=== PATIENT | male | born 1980 | race Hispanic/Latino ===

== ENCOUNTER 2018-11-07 01:10 | Inpatient (IN) | payer BC ==
--- NOTE | 2018-11-07 03:15 | ED PDOC ---
Lower Extremity Pain/Injury Time Seen by Provider: 11/07/18 01:23 Chief Complaint (Nursing): Lower Extremity Problem/Injury Chief Complaint (Provider): Distal Tibia Fx History Per: Patient History/Exam Limitations: no limitations Onset/Duration Of Symptoms: Mins (approximately 30 minutes prior to presentation) Current Symptoms Are (Timing): Still Present Severity: Moderate (Pt presents to the ED) Past Medical History Reviewed: Historical Data, Nursing Documentation, Vital Signs Vital Signs: Last Vital Signs Temp 97.7 F 11/07/18 01:18 Pulse 107 H 11/07/18 01:18 Resp 16 11/07/18 01:18 BP 138/94 H 11/07/18 01:18 Pulse Ox 96 11/07/18 01:18 - Family History Family History: States: Unknown Family Hx - Allergies Allergies/Adverse Reactions: Allergies Allergy/AdvReac Type Severity Reaction Status Date / Time No Known Allergies Allergy Verified 11/07/18 01:19 Review of Systems ROS Statement: Except As Marked, All Systems Reviewed And Found Negative Musculoskeletal: Positive for: Leg Pain Physical Exam - Reviewed Nursing Documentation Reviewed: Yes Vital Signs Reviewed: Yes - Physical Exam Appears: Positive for: Well, Non-toxic, No Acute Distress, Uncomfortable Head Exam: Positive for: ATRAUMATIC, NORMAL INSPECTION Skin: Positive for: Normal Color, Warm, Dry. Negative for: Diaphoresis, Pallor, Rash Eye Exam: Positive for: Normal appearance. Negative for: Nystagmus, Periorbital swelling, Periorbital tenderness Neck: Positive for: Normal. Negative for: Decreased ROM Cardiovascular/Chest: Positive for: Regular Rate, Rhythm Respiratory: Positive for: Normal Breath Sounds Pulses-Carotid (L): 2+ Pulses-Carotid (R): 2+ Pulses-Post. Tibialis (L): 2+ Pulses-Post. Tibialis (R): 2+ Pulses-Radial (L): 2+ Pulses-Radial (R): 2+ Extremity: Positive for: Tenderness (to the distal tibia), Capillary Refill (less than two seconds at all distal extremities), Deformity (to the left lower leg), Swelling. Negative for: Calf Tenderness Neurologic/Psych: Negative for: Motor/Sensory Deficits (no sensory or motor d eficits ) - ECG O2 Sat by Pulse Oximetry: 96 Medical Decision Making Medical Decision Making: I: Distal Tibia Fx P: Pain control Xray left ankle Pt immediately sent to xray based on clinical presentation Ankle Xray wet read as comminuted fx with displacement of the distal tibia and fibula. XR indicate comminuted distal tib fib fx with significant displacemetn 0245: Call to Podiatry: referred to Ortho 0300: Call to Ortho (Zurdo) who indicated admit to [facility] and immediately splint ankle Lower leg sugar tong splint placed; ice and elevation applied Pt refuses pain medication CT ordered 0: Call to Medical Service (Ryan Joshua) and admit to Dr Cornell service Pt will be placed NPO and pre-op labs ordered. Bridge orders entered to ensure smooth transition of care Disposition - Clinical Impression Clinical Impression: Fracture of distal end of tibia with fibula, Fracture of tibia and fibula - Patient ED Disposition Is Patient to be Admitted: Yes Discussed With : Jose Francisco Galvan III Doctor Will See Patient In The: Hospital Counseled Patient/Family Regarding: Studies Performed, Diagnosis - Disposition Disposition Time: 04:08 Condition: STABLE - Pt Status Changed To: Hospital Disposition Of: Inpatient - Admit Certification Admit to Inpatient:: After my assessment, the patient will require hospitalization for at least two midnights. This is because of the severity of symptoms shown, intensity of services needed, and/or the medical risk in this patient being treated as an outpatient.
[2018-11-07 04:51] LABS: BASO # 0.1 K/uL (0.0-0.2); BASO % 0.6 % (0.0-2.0); EOS % 0.4 % (0.0-4.0); HEMOGLOBIN 14.9 g/dL (12.0-18.0); LYMPH % 9.7 % (20.0-40.0); MEAN CELL VOLUME 90.1 fl (80.0-94.0); MEAN CORPUSCULAR HEMOGLOBIN 30.4 pg (27.0-31.0); MEAN CORPUSCULAR HGB CONC 33.7 g/dL (33.0-37.0); MEAN PLATELET VOLUME 9.5 fl (7.2-11.7); MONO # 0.3 K/uL (0.0-0.8); MONO % 3.1 % (0.0-10.0); NEUT # 9.3 K/uL (1.8-7.0); NEUT % 86.2 % (50.0-75.0); NRBC % 0.1 % (0.0-0.0); PLATELET COUNT 220 K/uL (130-400); RED CELL DISTRIBUTION WIDTH 14.4 % (11.5-14.5); WHITE BLOOD COUNT 10.8 K/uL (4.8-10.8)
[2018-11-07 04:55] LABS: ALB/GLOB RATIO 1.5 (1.0-2.1); ALBUMIN 4.8 g/dL (3.5-5.0); BLOOD UREA NITROGEN 9 mg/dl (9-20); CALCIUM 9.4 mg/dL (8.4-10.2); GFR NON-AFRICAN AMERICAN > 60
[2018-11-07 05:07] LABS: ALT/SGPT 47 U/L (21-72); AST/SGOT 45 U/L (17-59)
[2018-11-07 06:45] LABS: BASOPHIL 2 % (0-2); LYMPHOCYTE 13 % (20-50); MONOCYTE 3 % (0-10); NEUTROPHIL 82 % (42-75); PLATELET ESTIMATE NORMAL (NORMAL); TOTAL CELLS COUNTED 100
[2018-11-07] MEDS ORDERED: Morphine 4 MG/ML VIAL IVP PRN (08:04)
[2018-11-07] MEDS: Dextrose 5%/Lactated Ringer's 1,000 ML IV SCH (08:12)
[2018-11-07 10:11] LABS: PROTHROMBIN TIME 11.7 Seconds (9.8-13.1)
[2018-11-07 10:13] LABS: PARTIAL THROMBOPLASTIN TIME 34.1 Seconds (25.6-37.1)
[2018-11-07 10:51] LABS: URINE BILIRUBIN NEGATIVE (NEGATIVE); URINE BLOOD NEGATIVE (NEGATIVE); URINE CLARITY CLEAR (Clear); URINE COLOR STRAW (YELLOW); URINE GLUCOSE (UA) NEG (NEGATIVE); URINE LEUKOCYTE ESTERASE NEG Leu/uL (Negative); URINE PROTEIN NEGATIVE (NEGATIVE); URINE UROBILINOGEN 0.2-1.0 mg/dL (0.2-1.0)
--- NOTE | 2018-11-07 11:05 | RAD ---
Date of service: 11/07/2018 PROCEDURE: Left Tibia and Fibula Radiographs Left Ankle Radiographs. HISTORY: r/o fx COMPARISON: None available. FINDINGS: BONES: Comminuted, displaced fractures of the distal tibia and distal fibula with posterior dislocation of the major distal fracture segment. JOINTS: Normal. No osteoarthritis. Ankle mortise maintained. Talar dome intact SOFT TISSUES: Normal. OTHER FINDINGS: None. IMPRESSION: Comminuted, displaced distal tibia and fibula fractures.
--- NOTE | 2018-11-07 11:17 | CP.PCM.CON ---
History of Present Illness - History of Present Illness History of Present Illness: ID: 38 yo male presents with pain and restricted ROM L distal tibia/fibula CC: Pain, swelling and restricted ROM L ankle/ distal tibia/fibula HPI: 38 yo male presents with pain and restricted ROM L foot ankle complex. Pt sustained torsional injury to L distal tibia/fibula after fall on ice early this AM. Pt was exiting a bar on [address]- sustained a slip and fall on, sjustaing a torsional injury to L foot/ankle complex. PT seen in ER at [facility], stabilized and admitted/ pt seen at bedside this AM, presnting with sw elling and discomfort L foot/anjkle/distal tibia. Lower extremity poorly positioned , noted pain in area of L fibular head, with mild neurapraxia L peroneal nerve. Pt presents for surgery in AM Past Patient History - Past Medical History & Family History Past Medical History?: No - Past Social History Smoking Status: Never Smoked - CARDIAC Hx Cardiac Disorders: No - PULMONARY Hx Respiratory Disorders: No - NEUROLOGICAL Hx Neurological Disorder: No - HEENT Hx HEENT Problems: No - RENAL Hx Chronic Kidney Disease: No - ENDOCRINE/METABOLIC Hx Endocrine Disorders: No - HEMATOLOGICAL/ONCOLOGICAL Hx Blood Disorders: No - INTEGUMENTARY Hx Dermatological Problems: No - MUSCULOSKELETAL/RHEUMATOLOGICAL Hx Musculoskeletal Disorders: No Hx Falls: Yes (slipped on ice approx 20 mins prior to admission) - GASTROINTESTINAL Hx Gastrointestinal Disorders: No - GENITOURINARY/GYNECOLOGICAL Hx Genitourinary Disorders: No - PSYCHIATRIC Hx Psychophysiologic Disorder: No Hx Substance Use: No - SURGICAL HISTORY Hx Surgeries: No - ANESTHESIA Hx Anesthesia: No Meds Allergies/Adverse Reactions: Allergies Allergy/AdvReac Type Severity Reaction Status Date / Time No Known Allergies Allergy Verified 11/07/18 01:19 - Medications Medications: Current Medications Dextrose/Lactated Ringer's (Dextrose 5%/Lactated Ringer's) 1,000 mls @ 100 mls/hr IV .Q10H JENNIFER Stop: 11/08/18 08:02 Last Admin: 11/07/18 08:12 Dose: 100 mls/hr Ketorolac Tromethamine (Toradol) 30 mg IVP Q6 PRN PRN Reason: Pain, Mild (1-3) Morphine Sulfate (Morphine) 4 mg IVP Q4 PRN PRN Reason: Pain, severe (8-10) Morphine Sulfate (Morphine) 2 mg IVP Q4 PRN PRN Reason: Pain, moderate (4-7) Physical Exam - Additional Findings Additional findings: Physical Exam sytemic exam as per Dr Macias no gross abnormalities on physical exam Musculoskekltal exam: stance/gait- defrred pt at bedrest with L lower extremity poiorly positioned ( external rotation L lower extremity causing compression to proximal fibula with resultant mild peroneal n compression) pt able to dorsiflex hallux, but ertainly 1 muscle grade weaker than contralateral extremity postyerior splint intact pt with decreased senstaion 1st web space L foot Results - Vital Signs Recent Vital Signs: Last Vital Signs Temp 98.3 F 11/07/18 08:03 Pulse 108 H 11/07/18 08:03 Resp 20 11/07/18 08:03 BP 114/65 11/07/18 08:03 Pulse Ox 96 11/07/18 08:03 - Labs Result Diagrams: 11/07/18 04:22 11/07/18 04:22 Labs: Laboratory Results - last 24 hr 11/07/18 11/07/18 11/07/18 04:22 04:22 04:22 WBC 10.8 RBC 4.90 Hgb 14.9 Hct 44.2 MCV 90.1 MCH 30.4 MCHC 33.7 RDW 14.4 Plt Count 220 MPV 9.5 Neut % (Auto) 86.2 H Lymph % (Auto) 9.7 L [place] % (Auto) 3.1 Eos % (Auto) 0.4 Baso % (Auto) 0.6 Neut # (Auto) 9.3 H Lymph # (Auto) 1.0 [place] # (Auto) 0.3 Eos # (Auto) 0.0 Baso # (Auto) 0.1 Neutrophils % (Manual) 82 H Lymphocytes % (Manual) 13 L Monocytes % (Manual) 3 Basophils % (Manual) 2 Platelet Estimate Normal PT INR APTT Sodium 139 Potassium 4.5 Chloride 99 Carbon Dioxide 22 Anion Gap 23 H BUN 9 Creatinine 0.8 Est GFR ( Amer) > 60 Est GFR (Non-Af Amer) > 60 Random Glucose 110 Calcium 9.4 Total Bilirubin 0.7 AST 45 ALT 47 Alkaline Phosphatase 84 Total Protein 7.9 Albumin 4.8 Globulin 3.2 Albumin/Globulin Ratio 1.5 Urine Color Urine Clarity Urine pH Ur Specific [place] Urine Protein Urine Glucose (UA) Urine Ketones Urine Blood Urine Nitrate Urine Bilirubin Urine Urobilinogen Ur Leukocyte Esterase Urine RBC (Auto) Urine Microscopic WBC Blood Type O POSITIVE Blood Type Confirm Antibody Screen Negative BBK History Checked No verified bt 11/07/18 11/07/18 11/07/18 05:41 08:56 10:18 WBC RBC Hgb Hct MCV MCH MCHC RDW Plt Count MPV Neut % (Auto) Lymph % (Auto) [place] % (Auto) Eos % (Auto) Baso % (Auto) Neut # (Auto) Lymph # (Auto) [place] # (Auto) Eos # (Auto) Baso # (Auto) Neutrophils % (Manual) Lymphocytes % (Manual) Monocytes % (Manual) Basophils % (Manual) Platelet Estimate PT 11.7 INR 1.0 APTT 34.1 Sodium Potassium Chloride Carbon Dioxide Anion Gap BUN Creatinine Est GFR ( Amer) Est GFR (Non-Af Amer) Random Glucose Calcium Total Bilirubin AST ALT Alkaline Phosphatase Total Protein Albumin Globulin Albumin/Globulin Ratio Urine Color Straw Urine Clarity Clear Urine pH 7.0 Ur Specific [place] 1.005 Urine Protein Negative Urine Glucose (UA) Neg Urine Ketones Negative Urine Blood Negative Urine Nitrate Negative Urine Bilirubin Negative Urine Urobilinogen 0.2-1.0 Ur Leukocyte Esterase Neg Urine RBC (Auto) < 1 Urine Microscopic WBC < 1 Blood Type Blood Type Confirm O POSITIVE Antibody Screen BBK History Checked - Impressions Impression: Xray- Displaced, angulated, somewhat comminuted L distal 1/4 tibia fracture displced/angulated comminuted fibula frcature CT- displaced/ comminuted L distal 1/4 distal tibia frcature/ distal fibula fracture Assessment & Plan - Assessment and Plan (Free Text) Assessment: A- displaced/comminuted angulated distal 1/4 - distal 1/3 tibia fracture Angulated displaced L fibula fracture P- to OR for ORIF in AM. Lower extremity correctly positioned/ ice applied/ spline rewrapped pros/conms risks and benfits of surgical approach discussed informed consent obtained possibility of mechanical failure/infection/ thrombosis disease/nerve injury/secondary or tertiary surgery discussed No promises or guarantees- possibility of secondary or tertiary suregery discussed- NO PROMISE OR GUARANTEES- INFORMED CONSENT OBTAINED IN PRESCENCE OF february, AND Abelardo Cuello
--- NOTE | 2018-11-07 11:36 | CP.PCM.HP ---
History of Present Illness - History of Present Illness History of Present Illness: HPI: 38 y/o Male pt was brought to the ED S/P fall on ice in the street. Tibia/Fibula X-ray revealed a comminuted, displaced distal tibia and fibula fractures. At preesnt, the pt's LLE is splinted, with ice applied. Pt is for surgery tomorrow morning. CXR, labs, EKG, UA reviewed. Plan of care discussed with staff. PMH: unremarkable. PSH: unremarkable. Social History: social drinker, unremarkable. Allergies: NKDA. Present on Admission - Present on Admission Any Indicators Present on Admission: No Review of Systems - Review of Systems All systems: reviewed and no additional remarkable complaints except - Musculoskeletal Musculoskeletal: Joint Swelling, Limited Range of Motion, Muscle Weakness Additional comments: pain to LLE, near ankle. Past Patient History - Past Medical History & Family History Past Medical History?: No - Past Social History Smoking Status: Never Smoked - CARDIAC Hx Cardiac Disorders: No - PULMONARY Hx Respiratory Disorders: No - NEUROLOGICAL Hx Neurological Disorder: No - HEENT Hx HEENT Problems: No - RENAL Hx Chronic Kidney Disease: No - ENDOCRINE/METABOLIC Hx Endocrine Disorders: No - HEMATOLOGICAL/ONCOLOGICAL Hx Blood Disorders: No - INTEGUMENTARY Hx Dermatological Problems: No - MUSCULOSKELETAL/RHEUMATOLOGICAL Hx Musculoskeletal Disorders: No Hx Falls: Yes (slipped on ice approx 20 mins prior to admission) - GASTROINTESTINAL Hx Gastrointestinal Disorders: No - GENITOURINARY/GYNECOLOGICAL Hx Genitourinary Disorders: No - PSYCHIATRIC Hx Psychophysiologic Disorder: No Hx Substance Use: No - SURGICAL HISTORY Hx Surgeries: No - ANESTHESIA Hx Anesthesia: No Meds Allergies/Adverse Reactions: Allergies Allergy/AdvReac Type Severity Reaction Status Date / Time No Known Allergies Allergy Verified 11/07/18 01:19 Physical Exam - Constitutional Appears: No Acute Distress - Head Exam Head Exam: ATRAUMATIC, NORMAL INSPECTION, NORMOCEPHALIC - Eye Exam Eye Exam: EOMI, Normal appearance, PERRL Pupil Exam: NORMAL ACCOMODATION, PERRL - ENT Exam ENT Exam: Mucous Membranes Moist - Neck Exam Neck exam: Positive for: Full Rom, Normal Inspection - Respiratory Exam Respiratory Exam: Clear to Auscultation Bilateral, NORMAL BREATHING PATTERN - Cardiovascular Exam Cardiovascular Exam: REGULAR RHYTHM, +S1, +S2 - GI/Abdominal Exam GI & Abdominal Exam: Normal Bowel Sounds, Soft - Extremities Exam Additional comments: SALVATORE has a splint applied, with mild swelling noted to lower extremity. Toes are warm and movable. - Back Exam Back exam: NORMAL INSPECTION - Neurological Exam Neurological exam: Alert, CN II-XII Intact, Oriented x3 - Psychiatric Exam Psychiatric exam: Normal Affect, Normal Mood - Skin Skin Exam: Dry, Normal Color, Warm Results - Vital Signs Recent Vital Signs: Last Vital Signs Temp 98.3 F 11/07/18 08:03 Pulse 108 H 11/07/18 08:03 Resp 20 11/07/18 08:03 BP 114/65 11/07/18 08:03 Pulse Ox 96 11/07/18 08:03 - Labs Result Diagrams: 11/07/18 04:22 11/07/18 04:22 Labs: Laboratory Results - last 24 hr 11/07/18 11/07/18 11/07/18 04:22 04:22 04:22 WBC 10.8 RBC 4.90 Hgb 14.9 Hct 44.2 MCV 90.1 MCH 30.4 MCHC 33.7 RDW 14.4 Plt Count 220 MPV 9.5 Neut % (Auto) 86.2 H Lymph % (Auto) 9.7 L [place] % (Auto) 3.1 Eos % (Auto) 0.4 Baso % (Auto) 0.6 Neut # (Auto) 9.3 H Lymph # (Auto) 1.0 [place] # (Auto) 0.3 Eos # (Auto) 0.0 Baso # (Auto) 0.1 Neutrophils % (Manual) 82 H Lymphocytes % (Manual) 13 L Monocytes % (Manual) 3 Basophils % (Manual) 2 Platelet Estimate Normal PT INR APTT Sodium 139 Potassium 4.5 Chloride 99 Carbon Dioxide 22 Anion Gap 23 H BUN 9 Creatinine 0.8 Est GFR ( Amer) > 60 Est GFR (Non-Af Amer) > 60 Random Glucose 110 Calcium 9.4 Total Bilirubin 0.7 AST 45 ALT 47 Alkaline Phosphatase 84 Total Protein 7.9 Albumin 4.8 Globulin 3.2 Albumin/Globulin Ratio 1.5 Urine Color Urine Clarity Urine pH Ur Specific [place] Urine Protein Urine Glucose (UA) Urine Ketones Urine Blood Urine Nitrate Urine Bilirubin Urine Urobilinogen Ur Leukocyte Esterase Urine RBC (Auto) Urine Microscopic WBC Blood Type O POSITIVE Blood Type Confirm Antibody Screen Negative BBK History Checked No verified bt 11/07/18 11/07/18 11/07/18 05:41 08:56 10:18 WBC RBC Hgb Hct MCV MCH MCHC RDW Plt Count MPV Neut % (Auto) Lymph % (Auto) [place] % (Auto) Eos % (Auto) Baso % (Auto) Neut # (Auto) Lymph # (Auto) [place] # (Auto) Eos # (Auto) Baso # (Auto) Neutrophils % (Manual) Lymphocytes % (Manual) Monocytes % (Manual) Basophils % (Manual) Platelet Estimate PT 11.7 INR 1.0 APTT 34.1 Sodium Potassium Chloride Carbon Dioxide Anion Gap BUN Creatinine Est GFR ( Amer) Est GFR (Non-Af Amer) Random Glucose Calcium Total Bilirubin AST ALT Alkaline Phosphatase Total Protein Albumin Globulin Albumin/Globulin Ratio Urine Color Straw Urine Clarity Clear Urine pH 7.0 Ur Specific [place] 1.005 Urine Protein Negative Urine Glucose (UA) Neg Urine Ketones Negative Urine Blood Negative Urine Nitrate Negative Urine Bilirubin Negative Urine Urobilinogen 0.2-1.0 Ur Leukocyte Esterase Neg Urine RBC (Auto) < 1 Urine Microscopic WBC < 1 Blood Type Blood Type Confirm O POSITIVE Antibody Screen BBK History Checked Assessment & Plan (1) Fracture of tibia and fibula Assessment and Plan: Assessment/Impression/Major Problems now: 1.) Fracture of Tibia and Fibula: -Pt for ORIF surgery with orthopedics (Dr. Galvan) tomorrow morning. -To be placed NPO after midnight. -LLE posterior splint maintained, with ice packs applied at this time. -Toradol for mild pain, Morphine for stronger pain. -Coags, EKG, and UA reviewed: unremarkable. -CXR (my interpretation): clear, no active disease. -The pt is medically cleared for surgery tomorrow morning. Status: Acute
--- NOTE | 2018-11-07 11:45 | RAD ---
Date of service: 11/07/2018 PROCEDURE: CHEST RADIOGRAPH, 1 VIEW HISTORY: pre-op clearance COMPARISON: None available. FINDINGS: LUNGS: Clear. PLEURA: No pneumothorax or pleural fluid seen. CARDIOVASCULAR: No aortic atherosclerotic calcification present. Normal. OSSEOUS STRUCTURES: No significant abnormalities. VISUALIZED UPPER ABDOMEN: Normal. OTHER FINDINGS: None. IMPRESSION: No active disease.
--- NOTE | 2018-11-07 11:59 | CT ---
Date of service: 11/07/2018 PROCEDURE: CT of the right lower extremity. HISTORY: pre op: knee to toe COMPARISON: Right tibia/fibula and ankle radiographs performed earlier the same day. TECHNIQUE: Contiguous axial images of the right tibia and fibula were obtained. Coronal and sagittal reformats were generated. Radiation dose: Total exam DLP = 751.43 mGy-cm. This CT exam was performed using one or more of the following dose reduction techniques: Automated exposure control, adjustment of the mA and/or kV according to patient size, and/or use of iterative reconstruction technique. FINDINGS: BONES: There are comminuted, displaced fractures of the distal tibia and fibula. Distal tibia fracture plane extends to the interosseous region and to the tibiotalar articulation. SOFT TISSUES: Unremarkable. IMPRESSION: Comminuted fractures of the distal tibia and fibula as described above.
[2018-11-07] MEDS: Morphine 4 MG/ML VIAL IVP PRN ×2 (13:20→19:55)
[2018-11-08] MEDS: Dextrose 5%/Lactated Ringer's 1,000 ML IV SCH ×2 (05:10→05:20)
[2018-11-08] MEDS ORDERED: Midazolam 2 MG/2 ML VIAL ONE (07:25)
[2018-11-08] MEDS ORDERED: Lidocaine 4% (Laryng-O-Jet) Kit MM ONE (07:25)
[2018-11-08] MEDS ORDERED: Rocuronium 10 mg/ml (5 ml) ONE (07:25)
[2018-11-08] MEDS ORDERED: Propofol 10 mg/ml Inj (20 ML) ONE (07:25)
[2018-11-08] MEDS ORDERED: Sevoflurane - Inhalation Anesthetic Liq (250 ml) ONE (07:27)
[2018-11-08] MEDS ORDERED: Lactated Ringer's 1,000 ML IV ONE ×2 (07:45→10:00)
[2018-11-08] MEDS ORDERED: Absorbable Gelatin Sponge Size 12-7 ONE (07:46)
[2018-11-08] MEDS ORDERED: Bacitracin Ointment 30 GM TUBE ONE (07:46)
[2018-11-08] MEDS ORDERED: Ropivacaine 0.5% 30ML IV ONE (07:47)
--- NOTE | 2018-11-08 07:59 | CARD ---
APPROVED REPORT Date of service: 11/07/2018 EKG Measurement Heart [id number] <Conclusion> Sinus tachycardia Otherwise normal ECG
--- NOTE | 2018-11-08 09:06 | CP.PCM.PN ---
Subjective - Date & Time of Evaluation Date of Evaluation: 11/08/18 Time of Evaluation: 08:10 - Subjective Subjective: S- pt still with decreased sensation 1st/2nd web space- pt with post fracture pain/ motor EHL weak; Objective - Vital Signs/Intake and Output Vital Signs (last 24 hours): Temp Pulse Resp BP Pulse Ox 98.7 F 98 H 20 141/96 H 95 11/08/18 04:57 11/08/18 04:57 11/08/18 04:57 11/08/18 04:57 11/08/18 04:57 - Medications Medications: Current Medications Ketorolac Tromethamine (Toradol) 30 mg IVP Q6 PRN PRN Reason: Pain, Mild (1-3) Last Admin: 11/07/18 12:33 Dose: 30 mg Morphine Sulfate (Morphine) 4 mg IVP Q4 PRN PRN Reason: Pain, severe (8-10) Morphine Sulfate (Morphine) 2 mg IVP Q4 PRN PRN Reason: Pain, moderate (4-7) Last Admin: 11/07/18 19:55 Dose: 2 mg - Labs Labs: 11/07/18 04:22 11/07/18 04:22 PT 11.7 Seconds (9.8-13.1) 11/07/18 08:56 INR 1.0 11/07/18 08:56 APTT 34.1 Seconds (25.6-37.1) 11/07/18 08:56 - Additional Findings Additional findings: Obj systemic exam unchamnged Musculoskekltal exam decreased sensation 1st/2nd web space weakness of EHL (4/5) posterior splint intacft Assessment and Plan - Assessment and Plan (Free Text) Assessment: A- displaced/comminuted/angulated distal tibia fracture/angulated distal fibuyla fracture P- to OR for ORIF/ bone grafting- possibility fo mechanical failure/infection/thromboembolic disease/ possibility of nerve injury stifnnes/mechanical failure /infection thriomboembolic disease NO PROMSES//GUARANTEES
[2018-11-08] MEDS ORDERED: Dexamethasone 4 mg/1 ml ONE (09:08)
[2018-11-08] MEDS ORDERED: Neostigmine 1:1000 (1 mg/ml) Inj ONE (11:31)
[2018-11-08] MEDS ORDERED: HYDROmorphone 0.5 mg/0.5 ml ISec IVP PRN (12:01)
[2018-11-08] MEDS ORDERED: Dexamethasone 4 mg/1 ml IVP PRN (12:01)
[2018-11-08] MEDS ORDERED: Oxycodone/Acetaminophen 5/325 mg Tab PO PRN (12:03)
--- NOTE | 2018-11-08 12:04 | PCM.ANESB7 ---
Adductor Canal Block - Adductor Canal Block Date of Procedure: 11/08/18 Anesthiologist: Rojelio Cordova Pre-Procedure Diagnosis: Left distal tibial and fibia fracture Post-Procedure Diagnosis: Same Procedure Performed: Adductor Canal Block Left - Procedure Adductor Canal Block: The procedure was explained to the patient that it is for the post-operative pain management. Consent was obtained after a thorough discussion with the patient regarding the benefits and possible complications of local anesthetic adductor canal block of the femoral nerve. Standard monitors, as defined by the ASA, were applied to the patient. Time-out was held with the circulating nurse to confirm the appropriate block. After applying supplemental oxygen and administering IV Sedation as needed, the patient was placed in supine position with and the operative leg was flexed slightly at the knee and externally rotated as needed, and was kept anatomically stable. The mid-thigh of the ___LEFT lower extremity was exposed. The ultrasound transducer was then applied transversely along the medial aspect, about midway down the thigh and the femoral artery and vein were identified in appropriate relation with the sartorius muscle. At this time, the femoral nerve was visualized lateral to the femoral artery within the canal. After thorough identification, this area area was prepped with Chloroprep solution three times and 1 % Lidocaine was injected subcutaneously for topical anesthesia. At this point, a #22 gauge Stimuplex 4-inch needle was inserted in-plane in a [id number] orientation, and advanced toward the femoral nerve. Advancement was performed carefully under direct ultrasound visualization. After negative aspiration, __5___cc of ___0.5__% ropivacaine was injected and this was followed with __25____ cc of __0.5 % ropivacaine. Under ultrasound guidance the local anesthetics were observed spreading around the femoral nerve. The needle was removed intact and sterile dressing was applied. The patient had stable vital signs, was conscious and in no apparent distress. The patient tolerated the femoral nerve block well with stable vital signs and was prepared for subsequent surgery
--- NOTE | 2018-11-08 12:05 | PCM.ANESB2 ---
Popliteal Nerve Block - Popliteal Nerve Block Date of Procedure: 11/08/18 Anesthesiologist: Rojelio Cordova Pre-Procedure Diagnosis: Left distal tibial and fibia fracture Post-Procedure Diagnosis: Same Procedure Performed: Popliteal Nerve Block Left - Procedure Popliteal Nerve Block: This procedure was explained to the patient that it is for post-operative pain management. Consent was obtained after a thorough discussion with the patient regarding the benefits and possible complications of local anesthetic block of the sciatic nerve at the popliteal level. The patient was brought to the operating room and standard monitors are applied. Time-out was held with the circulating nurse to confirm the correct surgery and the appropriate block. After applying oxygen by nasal cannula and administering IV Sedation, patient's operative leg was gently raised and supported and the groove in between the biceps femoris and vastus lateralis muscles was carefully palpated. The skin marilou roximately 8cm above the LEFT popliteal crease was then marked. The ultrasound transducer was then applied to the posterior thigh approximately 8cm above the popliteal crease in the transverse plane and the sciatic nerve before its division was visualized lateral to the popliteal artery and in between the bicep femoris and semimembranosus/semitendinosus muscles. After identification, the lateral portion of the thigh was prepped with Chloraprep solution three times and Lidocaine 1% was injected subcutaneously for topical anesthesia. At this point, a # 21 gauge Stimuplex insulated 4 inch needle was inserted into pre-marked area and advanced in a perpendicular direction. The needle was inserted above the ultrasound transducer in-plane towards the sciatic nerve in a [id number] direction. Needle advancement was performed carefully under direct ultrasound visualization. After repeated negative aspiration, ___5__cc of __0.5___ % ropivacaine was injected and this was flowed with ___25___ cc of __0.5____% ropivacaine. Under ultrasound guidance the local anesthetics were observed surrounding sciatic nerve . The needle was removed intact and sterile dressing was applied. The patient tolerated the popliteal nerve block well with stable vital signs and was subsequently prepared for the surgery.
[2018-11-08] MEDS ORDERED: Sodium Chloride 0.9% 1,000 ML IV SCH (12:15)
[2018-11-08] MEDS: Lactated Ringer's 1,000 ML IV SCH (14:30)
[2018-11-08 14:37] VITALS: RESP 20
--- NOTE | 2018-11-08 16:17 | RAD ---
Date of service: 11/08/2018 PROCEDURE: Fluoroscopic assistance in excess of 1 hour. HISTORY: ORIF LEFT DISTAL TIB FIB COMPARISON: None TECHNIQUE: Standard protocol for this study/examination. FINDINGS: Total fluoroscopic time (continuous mode) utilized during the procedure 15.2 seconds. Submitted images from the current procedure: 6.0 IMPRESSION: Greater than 1 hour for fluoroscopy employed for open reduction internal fixation distal tibia and fibular fractures.
--- NOTE | 2018-11-08 16:37 | RAD ---
Date of service: 11/08/2018 PROCEDURE: Left Foot Radiographs. HISTORY: S/P left tibia/fibula ORIF COMPARISON: Preoperative study 11/07/2018. FINDINGS: BONES: Major fracture fragments are anatomically aligned. JOINTS: Normal. SOFT TISSUES: Normal. OTHER FINDINGS: None. IMPRESSION: Satisfactory postoperative status.
--- NOTE | 2018-11-08 16:37 | RAD ---
Date of service: 11/08/2018 PROCEDURE: Left Ankle Radiographs. HISTORY: S/P left tibia and fibula ORIF COMPARISON: None available. FINDINGS: BONES: Satisfactory position alignment of major fracture fragments distal left tibia and fibula. JOINTS: Normal. No osteoarthritis. Ankle mortise maintained. Talar dome intact SOFT TISSUES: Normal. OTHER FINDINGS: None. IMPRESSION: Satisfactory postoperative status.
[2018-11-08] MEDS: ceFAZolin 2 GM in Sodium Chloride 0.9% 100 ML IVPB SCH ×2 (16:38→23:26)
--- NOTE | 2018-11-08 18:15 | PCM.SURG1 ---
Surgeon's Initial Post Op Note - Surgeon's Notes Surgeon: Cole Stable Cleaner: MUSA Jenkins Type of Anesthesia: General Endo, Block Regional Anesthesia Administered By: Dr Cordova Pre-Operative Diagnosis: Displaced distal 1/3, distal 1/4 tibia fracture. displaced /angulated fibula fracture Operative Findings: displaced/ comminuted distal 1/3, distal 1/4 tibia frcature. displaced/ angulated fibula shaft fracture Post-Operative Diagnosis: as above Operation Performed: ORIF displaced/ angulated distal 1/3, distal 1/4 tibia frcature. ORIF displaced/ angulated, comminuted distal fibula fracture. fasciotomy- multiple compartments. applx short leg posterior splint. autograft/ allograft bone graft. positioning of fluor/interpretation of video images . Specimen/Specimens Removed: callous/ bone Estimated Blood Loss: EBL {In ML}: 30 Blood Products Given: N/A Drains Used: No Drains Post-Op Condition: Fair Date of Surgery/Procedure: 11/08/18 Time of Surgery/Procedure: 09:15 (time in room/anaesthesia induciton time 8:12)
--- NOTE | 2018-11-08 18:44 | CP.PCM.PN ---
Subjective - Date & Time of Evaluation Date of Evaluation: 11/08/18 Time of Evaluation: 10:00 - Subjective Subjective: patient away in OR for procedure spoke with PATIENT CARE ASSOCIATE available diagnostic data reviewed cont plan as ordered follow up post op care Objective - Vital Signs/Intake and Output Vital Signs (last 24 hours): Temp Pulse Resp BP Pulse Ox 97.8 F 103 H 20 135/77 95 11/08/18 16:00 11/08/18 16:00 11/08/18 16:00 11/08/18 16:00 11/08/18 16:00 Intake and Output: 11/08/18 11/08/18 06:59 18:59 Intake Total 1250 Output Total 50 Balance 1200 - Medications Medications: Current Medications Docusate Sodium (Colace) 100 mg PO BID [facility] Last Admin: 11/08/18 17:43 Dose: 100 mg Enoxaparin Sodium (Lovenox) 40 mg SC DAILY [facility]; Protocol Hydromorphone HCl (Dilaudid) 0.5 mg IVP Q4 PRN PRN Reason: Pain, severe (8-10) Lactated Ringer's (Lactated Ringer's) 1,000 mls @ 125 mls/hr IV .Q8H [facility] Last Admin: 11/08/18 14:30 Dose: Not Given Cefazolin Sodium 2 gm/ Sodium (Chloride) 100 mls @ 100 mls/hr IVPB Q8H [facility]; Protocol Stop: 11/09/18 00:59 Last Admin: 11/08/18 16:38 Dose: 100 mls/hr Sodium Chloride (Sodium Chloride 0.9%) 1,000 mls @ 80 mls/hr IV .[id number] [facility] Stop: 11/09/18 00:44 Last Admin: 11/08/18 14:25 Dose: 0 mls Ketorolac Tromethamine (Toradol) 30 mg IVP Q6 PRN PRN Reason: Pain, Mild (1-3) Last Admin: 11/07/18 12:33 Dose: 30 mg Oxycodone/Acetaminophen (Percocet 5/325 Mg Tab) 2 tab PO Q4 PRN PRN Reason: Pain, moderate (4-7) Stop: 11/11/18 12:04 - Labs Labs: 11/07/18 04:22 11/07/18 04:22 PT 11.7 Seconds (9.8-13.1) 11/07/18 08:56 INR 1.0 11/07/18 08:56 APTT 34.1 Seconds (25.6-37.1) 11/07/18 08:56
[2018-11-08 23:38] VITALS: BMI 29.7
[2018-11-09] MEDS: Lactated Ringer's 1,000 ML IV SCH ×2 (04:31→13:11)
[2018-11-09 08:24] VITALS: BP 155/93; PULSE 86; TEMP 98.1; O2SAT 97
--- NOTE | 2018-11-09 08:27 | CP.PCM.PN ---
Subjective - Date & Time of Evaluation Date of Evaluation: 11/09/18 Time of Evaluation: 07:30 - Subjective Subjective: Patient seen and examined at bedside. Pain well controlled. Notes that nerve block started to wear off at 3AM last night. No acute events overnight. Has not had PT as of yet. Denies CP/SOB/dizziness/fever. Objective - Vital Signs/Intake and Output Vital Signs (last 24 hours): Temp Pulse Resp BP Pulse Ox 98.1 F 86 20 155/93 H 97 11/09/18 08:24 11/09/18 08:24 11/09/18 08:24 11/09/18 08:24 11/09/18 08:24 - Medications Medications: Current Medications Docusate Sodium (Colace) 100 mg PO BID [facility] Last Admin: 11/09/18 08:03 Dose: 100 mg Enoxaparin Sodium (Lovenox) 40 mg SC DAILY [facility]; Protocol Hydromorphone HCl (Dilaudid) 0.5 mg IVP Q4 PRN PRN Reason: Pain, severe (8-10) Lactated Ringer's (Lactated Ringer's) 1,000 mls @ 125 mls/hr IV .Q8H [facility] Last Admin: 11/09/18 04:31 Dose: Not Given Ketorolac Tromethamine (Toradol) 30 mg IVP Q6 PRN PRN Reason: Pain, Mild (1-3) Last Admin: 11/09/18 06:45 Dose: 30 mg Oxycodone/Acetaminophen (Percocet 5/325 Mg Tab) 2 tab PO Q4 PRN PRN Reason: Pain, moderate (4-7) Stop: 11/11/18 12:04 Last Admin: 11/09/18 03:55 Dose: 2 tab - Labs Labs: 11/07/18 04:22 11/07/18 04:22 PT 11.7 Seconds (9.8-13.1) 11/07/18 08:56 INR 1.0 11/07/18 08:56 APTT 34.1 Seconds (25.6-37.1) 11/07/18 08:56 - Extremities Exam Additional comments: LLE: posterior/U splint CDI sensation intact SP/DP/TN motor intact EHL/FHL 2 sec cap refill all toes Assessment and Plan (1) Fracture of distal end of tibia with fibula Assessment & Plan: POD#1 s/p L ankle distal tib/fib fx ORIF -pain controlled -PT/OT NWB LLE -orthopedically stable for discharge to home following crutch training -f/u in office within 7-10 days -above d/w Dr. Galvan in agreement Status: Acute (2) Fracture of tibia and fibula Status: Acute
[2018-11-09] MEDS ORDERED: Enoxaparin 40 mg Syringe SC SCH (09:00)
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
[2018-11-09] MEDS ORDERED: Oxycodone/Acetaminophen 5/325 mg Tab PO STA (14:16)
[2018-11-09] MEDS ORDERED: Oxycodone/Acetaminophen 5/325 mg Tab ONE (14:19)
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
== END 2018-11-09 14:41 | disposition home or self-care (01) | DRG 494 ==
LOC: H.ER 01:10 → H.ERHOLD 03:20 → H.MEDSURG1 05:00
PROVIDERS: ADMIT Family Medicine; ATTEND Family Medicine
PROC: 0QSH04Z Reposition Left Tibia with Internal Fixation Device, Open Approach (ICD-10-PCS; principal; 2018-11-07)
PROC: 0QSK04Z Reposition Left Fibula with Internal Fixation Device, Open Approach (ICD-10-PCS; 2018-11-07)
PROC: 0KNT0ZZ Release Left Lower Leg Muscle, Open Approach (ICD-10-PCS; 2018-11-07)
PROC: 0QUK07Z Supplement Left Fibula with Autologous Tissue Substitute, Open Approach (ICD-10-PCS; 2018-11-07)
PROC: 3E0T3BZ Introduction of Anesthetic Agent into Peripheral Nerves and Plexi, Percutaneous Approach (ICD-10-PCS; 2018-11-07)
PROC: 3E0T33Z Introduction of Anti-inflammatory into Peripheral Nerves and Plexi, Percutaneous Approach (ICD-10-PCS; 2018-11-07)
PROC: F07Z9FZ Gait Training/Functional Ambulation Treatment using Assistive, Adaptive, Supportive or Protective Equipment (ICD-10-PCS; 2018-11-08)
DX: S82.392A Other fracture of lower end of left tibia, initial encounter for closed fracture (principal); S82.832A Other fracture of upper and lower end of left fibula, initial encounter for closed fracture; S94.22XA Injury of deep peroneal nerve at ankle and foot level, left leg, initial encounter; W00.0XXA Fall on same level due to ice and snow, initial encounter; Y92.410 Unspecified street and highway as the place of occurrence of the external cause